=== PATIENT | male | born 1970 | race Two or more races ===

== ENCOUNTER 2023-05-29 16:38 | Emergency (ER) | payer MEDICAID ==
[~2023-05-29] VITALS: Ht 167.6 cm; Wt 109.3 kg
[2023-05-29 17:18] LABS: Basophils # (auto) 0 10 ^3/uL (0-0.2); Basophils % (auto) 0.5 % (0.0-2.0); Eosinophils # (auto) 0.3 10 ^3/uL (0-0.8); Eosinophils % (auto) 4.8 % (0.0-7.0); Hematocrit 47.2 % (41.0-53.0); Hemoglobin 15.8 g/dL (13.5-17.5); Lymphocytes # (auto) 1.8 10 ^3/uL (0.4-5.4); Lymphocytes % (auto) 25.4 % (10.0-50.0); Mean Corpuscular Hemoglobin 28.3 pg (28.0-32.0); Mean Corpuscular Hgb Conc. 33.4 g/dL (32.0-36.0); Mean Corpuscular Volume 84.6 fL (80.0-100.0); Monocytes # (auto) 0.7 10 ^3/uL (0-1.3); Monocytes % (auto) 9.5 % (0.0-12.0); Neutrophils # (auto) 4.3 10 ^3/uL (1.6-8.6); Neutrophils % (auto) 59.8 % (37.0-80.0); Nucleated Red Blood Cells % 0.1 %; Red Blood Cells 5.58 10^6/uL (4.5-5.90); Red Cell Distribution Width 13.4 % (11.8-14.3); White Blood Cell 7.3 10^3/uL (4.4-10.8)
[2023-05-29 17:25] LABS: Chloride 102 mmol/L (98-107); Sodium 137 mmol/L (136-145)
[2023-05-29 17:26] LABS: Anion Gap 9 (5-15); Calcium 9.8 mg/dL (8.5-10.1); Carbon Dioxide 26 mmol/L (20-30)
[2023-05-29 17:31] LABS: BUN/Creatinine Ratio 16.3 (10.0-20.0); Blood Urea Nitrogen 13 mg/dL (9-23); Glucose 223 mg/dL (74-106)
[2023-05-29] MEDS ORDERED: ARTIOIN6 OP (18:34)
[2023-05-29 20:34] VITALS: BP 156/89; PULSE 75; RESP 15; TEMP 99.4; O2SAT 96
[2023-05-29] MEDS ORDERED: PRED20TA2 PO (20:48)
== END 2023-05-29 21:16 | disposition home or self-care (01) ==
LOC: ER 16:42
DX: G51.0 Bell's palsy (principal); I10 Essential (primary) hypertension
CPT/HCPCS: 36415; 70450; 80048; 84484; 85025; 93005